=== PATIENT | female | born 1990 | race Caucasian/White ===

== ENCOUNTER 2016-06-23 23:52 | Emergency (ER) | payer BC ==
[~2016-06-23] VITALS: Ht 162.6 cm; Wt 59.4 kg
[2016-06-23 23:55] VITALS: Ht 162.6 cm; Wt 59.4 kg
[2016-06-24] MEDS ORDERED: SOD CHLORIDE 0.9% 1,000 ML IV STA (02:39)
[2016-06-24] MEDS ORDERED: ONDANSETRON 4 MG INJ IV STA (02:39)
[2016-06-24] MEDS ORDERED: FAMOTIDINE 20 MG INJ IV ONE (03:00)
[2016-06-24] MEDS ORDERED: LIDOCAINE/MYLANTA 40 ML BTL PO ONE (03:00)
[2016-06-24 03:03] LABS: ADD SCAN DIFF NO
[2016-06-24 03:07] LABS: BASOPHILS % 0.2 % (0.0-2.0); EOSINOPHILS # 0.1 10^3/ul (0.0-0.5); EOSINOPHILS % 0.5 % (0.0-7.0); HEMATOCRIT 40.3 % (37.0-47.0); HEMOGLOBIN 13.5 g/dl (12.0-16.0); LYMPHOCYTES # 1.1 10^3/ul (0.8-2.9); LYMPHOCYTES % 9.7 % (15.0-51.0); MEAN CORPUSCULAR HEMOGLOBIN 29.2 pg (29.0-33.0); MEAN CORPUSCULAR HGB CONC 33.5 g/dl (32.0-37.0); MEAN PLATELET VOLUME 9.1 fl (7.4-10.4); MONOCYTE # 0.2 10^3/ul (0.3-0.9); MONOCYTES % 1.8 % (0.0-11.0); NEUTROPHIL # 10.2 10^3/ul (1.6-7.5); NEUTROPHILS % 87.4 % (39.0-77.0); PLATELET COUNT 181 10^3/UL (140-415); RED BLOOD COUNT 4.63 10^6/ul (4.20-5.40); RED CELL DISTRIBUTION WIDTH 12.2 % (11.5-14.5); WHITE BLOOD COUNT 11.7 10^3/ul (4.8-10.8)
[2016-06-24 03:18] LABS: ALBUMIN 4.5 g/dl (3.3-4.9)
[2016-06-24 03:19] LABS: POTASSIUM 3.6 mmol/L (3.5-5.1)
[2016-06-24 03:21] LABS: ALBUMIN/GLOBULIN RATIO 1.36; BILIRUBIN,INDIRECT 0.3 mg/dl (0-1.1); BILIRUBIN,TOTAL 0.3 mg/dl (0.2-1.3); CREATININE 0.56 mg/dl (0.44-1.00); TOTAL PROTEIN 7.8 g/dl (6.1-8.1)
[2016-06-24] MEDS ORDERED: FAMO-18 PO (03:57)
[2016-06-24 04:06] VITALS: BP 118/72; PULSE 82; RESP 18; TEMP 98
--- NOTE | 2016-06-24 04:26 | ERD ---
ER Documentation Chief Complaint Date/Time DATE: 06/24/16 TIME: 04:21 Chief Complaint epigastric pain x 2 days HPI 35-year-old female with no significant past medical history presents the ED complaining of epigastric pain that started 2 days ago. States that she went to a [place] restaurant and started to drink 2 3 shots of sucking and started to have mid epigastric pain. States that the pain was worse at night. Reports that she has been taking Gatorade without relief of her symptoms. Rates her pain a 10 out of 10 and describes it as a burning sensation. States that she has had 2-3 episodes of nonbilious nonbloody vomiting. Reports that she had one episode of nonbloody, nonmucoid diarrhea. Denies any chest pain, shortness of breath, wheezing, cough, fever, chills, neck stiffness, neck pain. States that she is currently on her last menses. ROS All systems reviewed and are negative except as per history of present illness. Medications Home Meds Active Scripts Famotidine* (Pepcid*) 20 Mg Tablet, 20 MG PO BID, #30 TAB Prov:CHALO HUTCHINS PA-C 06/24/16 Allergies Allergies: Coded Allergies: No Known Allergy (Unverified , 12/26/13) PMhx/Soc History of Surgery: Yes (rhinoplasty, chin cosmetic surgery) Anesthesia Reaction: No Hx Neurological Disorder: No Hx Respiratory Disorders: No Hx Cardiac Disorders: No Hx Psychiatric Problems: No Hx Miscellaneous Medical Probl: No Hx Alcohol Use: Yes (rarely) Hx Substance Use: No Hx Tobacco Use: Yes Smoking Status: Current some day smoker Physical Exam Vitals Vital Signs Date Time Temp Pulse Resp B/P Pulse Ox O2 Delivery O2 Flow Rate FiO2 06/24/16 04:06 98.0 82 18 118/72 100 Room Air 06/23/16 23:55 98.3 68 20 124/74 100 Physical Exam Const: Xaf-ymh-[id number], well-nourished. In no acute distress. Head: Atraumatic, normocephalic Eyes: Normal Conjunctiva without injection. No purulent discharge. ENT: Normal external ear, nose. Moist oropharynx without tonsillar exudates. Non -erythematous pharynx. Uvula midline. No drooling. No trismus. Neck: No cervical midline tenderness. Full range of motion. No meningismus. No cervical lymphadenopathy. No JVD. Resp: Clear to auscultation bilaterally. No wheezing, rhonchi, rales, or crackles. No accessory muscle use. No retractions. Cardio: Regular rate and rhythm. No murmurs, rubs or gallops. Abd: Soft, epigastric tenderness, non distended. Normal bowel sounds. No palpable masses. No rebound tenderness. No guarding. Negative McBurney's point. Negative psoas sign. Negative obturator sign. Skin: No petechiae or rashes Back: No midline tenderness. No CVA tenderness. Ext: No cyanosis, or edema. Neur: Awake and alert. Normal gait. Normal coordination. Psych: Normal Mood and Affect Result Diagram: 06/24/1625006/24/16 0251 Results 24 hrs Laboratory Tests Test 06/24/16 02:51 Alanine Aminotransferase (ALT/SGPT) 23IU/L Albumin 4.5g/dl Albumin/Globulin Ratio 1.36 Alkaline Phosphatase 48IU/L Anion Gap 18 Aspartate Amino Transf (AST/SGOT) 27IU/L Basophils # 0.010^3/ul Basophils % 0.2% Blood Urea Nitrogen 11mg/dl Calcium Level 9.0mg/dl Carbon Dioxide Level 27mmol/L Chloride Level 103mmol/L Creatinine 0.56mg/dl Direct Bilirubin 0.00mg/dl Eosinophils # 0.110^3/ul Eosinophils % 0.5% Globulin 3.30g/dl Glucose Level 103mg/dl Hematocrit 40.3% Hemoglobin 13.5g/dl Indirect Bilirubin 0.3mg/dl Lipase 17U/L Lymphocytes # 1.110^3/ul Lymphocytes % 9.7% Mean Corpuscular Hemoglobin 29.2pg Mean Corpuscular Hemoglobin Concent 33.5g/dl Mean Corpuscular Volume 87.0fl Mean Platelet Volume 9.1fl Monocytes # 0.210^3/ul Monocytes % 1.8% Neutrophils # 10.210^3/ul Neutrophils % 87.4% Nucleated Red Blood Cells # 0.010^3/ul Nucleated Red Blood Cells % 0.0/100WBC Platelet Count 66275^3/UL Potassium Level 3.6mmol/L Red Blood Count 4.6310^6/ul Red Cell Distribution Width 12.2% Sodium Level 144mmol/L Total Bilirubin 0.3mg/dl Total Protein 7.8g/dl White Blood Count 11.710^3/ul Current Medications Medications (Trade) Dose Ordered Sig/Lee Ann Route PRN Reason Start Time Stop Time Status Last Admin Dose Admin Sodium Chloride (NS) 1,000 ml @ 1,000 mls/hr Q1H STAT IV 06/24/16 02:39 06/24/16 03:38 DC 06/24/16 03:00 Ondansetron HCl (Zofran Inj) 4 mg ONCE STAT IV 06/24/16 02:39 06/24/16 02:43 DC 06/24/16 03:00 Miscellaneous Medication (Gi Cocktail (2)) 40 ml ONCE ONCE PO 06/24/16 03:00 06/24/16 03:01 DC 06/24/16 03:00 Famotidine (Pepcid Iv) 20 mg ONCE ONCE IV 06/24/16 03:00 06/24/16 03:01 DC 06/24/16 03:00 Procedures/MDM This is a 25-year-old female with no significant past medical history presents the ED complaining of epigastric pain that started after drinking alcohol. Patient is afebrile and nontoxic-appearing. Patient has normal vital signs. Patient was further worked up with CBC, CMP, lipase, UA, urine , Patient's pain and symptoms have improved after treatment with GI cocktail, 20 mg IV famotidine, 1 L normal saline, 4 mg IV Zofran. CBC: No leukocytosis. No e/o of systemic infection. No e/o anemia. CMP: No e/o severe acidosis, alkalosis, renal failure, diabetic ketoacidosis, liver disease Lipase within normal limits. Urine: No leukocyte esterase, no nitrites, no hematuria. Urine : Negative Patient's epigastric pain is likely due to gastritis and exacerbated by alcohol. A differential diagnosis considered includes but is not limited to GERD, peptic ulcer disease, cholecystitis, choledocholithiasis, cholangitis, pancreatitis, appendicitis, bowel obstruction, ileus, volvulus, nephrolithiasis , pyelonephritis, hepatitis, perforated viscus, diverticulitis, abdominal hernia , acute abdomen, mesenteric ischemia or other emergent conditions. Discharge medications: Pepcid Follow up with primary care physician in 1-2 days for referral to sports coordinator. Instructed patient to return to the ED sooner for any worsening symptoms. Patient's questions were answered. Patient understood and agreed with discharge plan. Patient discharged stable. Departure Diagnosis: Primary Impression: Epigastric pain Condition: Stable Patient Instructions: Alcohol Intoxication, Gastritis Vs. Ulcer Referrals: [facility] YOU HAVE RECEIVED A MEDICAL SCREENING EXAM AND THE RESULTS INDICATE THAT YOU DO NOT HAVE A CONDITION THAT REQUIRES URGENT TREATMENT IN THE EMERGENCY DEPARTMENT. FURTHER EVALUATION AND TREATMENT OF YOUR CONDITION CAN WAIT UNTIL YOU ARE SEEN IN YOUR DOCTORS OFFICE WITHIN THE NEXT 1-2 DAYS. IT IS YOUR RESPONSIBILITY TO MAKE AN APPOINTMENT FOR FOLOW-UP CARE. IF YOU HAVE A PRIMARY DOCTOR --you should call your primary doctor and schedule an appointment IF YOU DO NOT HAVE A PRIMARY DOCTOR YOU CAN CALL OUR PHYSICIAN REFERRAL HOTLINE AT IF YOU CAN NOT AFFORD TO SEE A PHYSICIAN YOU CAN CHOSE FROM THE FOLLOWING [facility] [address] [facility]. [facility] [address] [facility] [address] [facility] [address] [facility] [address] [facility]. [facility] [address] [facility]. [facility] YOU HAVE RECEIVED A MEDICAL SCREENING EXAM AND THE RESULTS INDICATE THAT YOU DO NOT HAVE A CONDITION THAT REQUIRES URGENT TREATMENT IN THE EMERGENCY DEPARTMENT. FURTHER EVALUATION AND TREATMENT OF YOUR CONDITION CAN WAIT UNTIL YOU ARE SEEN IN YOUR DOCTORS OFFICE WITHIN THE NEXT 1-2 DAYS. IT IS YOUR RESPONSIBILITY TO MAKE AN APPOINTMENT FOR FOLOW-UP CARE. IF YOU HAVE A PRIMARY DOCTOR --you should call your primary doctor and schedule and appointment IF YOU DO NOT HAVE A PRIMARY DOCTOR YOU CAN CALL OUR PHYSICIAN REFERRAL HOTLINE AT . IF YOU CAN NOT AFFORD TO SEE A PHYSICIAN YOU CAN CHOSE FROM THE FOLLOWING [facility] INSTITUTIONS: [facility] [address] [place] [address] [facility] [address] [place] [address] [facility] [address] [address] [facility] Additional Instructions: FOLLOW UP WITH YOUR PRIMARY CARE PHYSICIAN TOMORROW.Return to this facility if you are not improving as expected. CHALO HUTCHINS PA-C Jun 24, 2016 04:26
== END 2016-06-24 04:07 | disposition home or self-care (01) ==
LOC: FTE 23:52
DX: R10.13 Epigastric pain (principal); F17.210 Nicotine dependence, cigarettes, uncomplicated; R11.10 Vomiting, unspecified
CPT/HCPCS: 36415; 80053; 83690; 85025; 96374; 96375; J2405; J7030; Z7502; Z7610

== ENCOUNTER 2018-11-12 17:28 | Emergency (ER) | payer BC ==
[~2018-11-12] VITALS: Ht 167.6 cm; Wt 54.6 kg
[~2018-11-12 17:28] MED LIST: FAMO-96 PO
[2018-11-12 17:31] VITALS: Ht 167.6 cm; Wt 54.6 kg
[2018-11-12] MEDS ORDERED: ACET325T33 PO (20:29)
[2018-11-12] MEDS ORDERED: CYCL10TA7 PO (20:29)
[2018-11-12] MEDS ORDERED: MED4DP PO (20:29)
[2018-11-12 20:36] VITALS: BP 116/75; PULSE 69; RESP 16
--- NOTE | 2018-11-13 01:33 | ERD ---
ER Documentation Chief Complaint Chief Complaint LOW BACK PAIN X2 WEEKS, NO INJURY HPI 28-year-old female presented to ED for lower back pain x2 weeks. Patient states the pain is 5 out of 10 and does not radiate. Patient denies any aggravating injuries and cannot recall any event that initiated the symptoms. Patient denies dysuria, blood in stool or urine. Patient states she does not think she is . Patient states this is never happened to her before. Patient states the pain is aggravated when she walks around and relieved when she is laying down. Patient has tried Motrin which has not helped. ROS All systems reviewed and are negative except as per history of present illness. Medications Home Meds Active Scripts Acetaminophen* (Tylenol*) 325 Mg Tablet, 1 TAB PO Q6 PRN for PAIN AND OR ELEVATED TEMP, #20 TAB Prov:JOSÉ MIGUEL DOWNS PA-C 11/12/18 Cyclobenzaprine Hcl* (Cyclobenzaprine Hcl*) 10 Mg Tablet, 10 MG PO TID, #15 TAB Prov:JOSÉ MIGUEL DOWNS PA-C 11/12/18 Methylprednisolone* (Medrol* DOSE PACK) 4 Mg/Dose-Pack Tab.ds.pk, 4 MG PO . DIRECTED for 7 Days, PACKET Prov:JOSÉ MIGUEL DOWNS PA-C 11/12/18 Famotidine* (Pepcid*) 20 Mg Tablet, 20 MG PO BID, #30 TAB Prov:CHALO HUTCHINS PA-C 06/24/16 Allergies Allergies: Coded Allergies: No Known Allergy (Unverified , 12/26/13) PMhx/Soc Medical and Surgical Hx: pt denies Medical Hx, pt denies Surgical Hx History of Surgery: Yes (rhinoplasty, chin cosmetic surgery) Anesthesia Reaction: No Hx Neurological Disorder: No Hx Respiratory Disorders: No Hx Cardiac Disorders: No Hx Psychiatric Problems: No Hx Miscellaneous Medical Probl: No Hx Alcohol Use: Yes (occasional) Hx Substance Use: No Hx Tobacco Use: No Smoking Status: Never smoker FmHx Family History: No diabetes, No coronary disease, No other Physical Exam Vitals Vital Signs Date Temp Pulse Resp B/P (MAP) Pulse Ox O2 O2 Flow FiO2 Time Delivery Rate 11/12/18 69 16 116/75 100 Room Air 20:36 (89) 11/12/18 98.8 85 17 113/65 99 17:31 (81) Physical Exam Const: No acute distress Head: Atraumatic Eyes: Normal Conjunctiva ENT: Normal External Ears, Nose and Mouth. Neck: Full range of motion. No meningismus. Resp: Clear to auscultation bilaterally Cardio: Regular rate and rhythm, no murmurs Abd: Soft, non tender, non distended. Normal bowel sounds Skin: No petechiae or rashes Back: No midline or flank tenderness Ext: No cyanosis, or edema Neur: Awake and alert Psych: Normal Mood and Affect Results 24 hrs Laboratory Tests Test 11/12/18 19:33 11/12/18 19:35 Urine Color YELLOW Urine Clarity SLIGHTLY CLOUDY Urine pH 5.0 Urine Specific [place] 1.012 Urine Ketones NEGATIVE mg/dL Urine Nitrite NEGATIVE mg/dL Urine Bilirubin NEGATIVE mg/dL Urine Urobilinogen NEGATIVE mg/dL Urine Leukocyte Esterase NEGATIVE Sharee/ul Urine Microscopic RBC 3 /HPF Urine Microscopic WBC 4 /HPF Urine Squamous Epithelial Cells FEW /HPF Urine Hemoglobin 1+ mg/dL Urine Glucose NEGATIVE mg/dL Urine Total Protein NEGATIVE mg/dl POC Beta HCG, Qualitative NEGATIVE Procedures/MDM Medical decision makin-year-old female presenting to the ED for low back pain x2 weeks. Patient's physical exam revealed back pain during straight leg raise. There is no symptoms of sciatica. The patient has 5 out of 5 myotomes and lower extremities and no pain to palpation. Patient denies any urinary symptoms. Patient states this is never happened to her before. Urine screening was negative and the patient does not have a UTI. Patient states she can pass urine and stool without difficulty. Patient states there is no been no blood in her stool or urine. Patient has no CVA tenderness. Patient has no numbness tingling or weakness in any of the extremities. At this time I have low suspicion for , ectopic , ovarian torsion cauda equine syndrome, spinal fractures, epidural abscess, spinal metastases, osteomyelitis, aortic dissection, ruptured or leaking AA, DJD, sciatica, lumbar strain, muscle spasm, pyelonephritis or nephrolithiasis. Advised the patient she needs to follow-up with her primary care provider in 1 to 2 days regarding this visit. If symptoms worsen return to ER immediately. The patient is agreement treatment plan all questions were answered upon discharge Prescription for home: Cyclobenzaprine Medrol Dosepak Acetaminophen I have discussed with the patient proper use and common side effects to expert with the medication . I advised the patient/family to speak with the pharmacist dispensing the medication to be advised of any potential drug interactions with other medication or supplements they may be taking. Discharge: At this time, patient is stable for discharge and outpatient management. I have instructed the patient to follow-up with his\her primary care physician in 1 to 2 days. I have discussed with the patient the possibility of needing to see a specialist for further work-up and imaging studies if symptoms persist. I have instructed the patient to promptly return to the ER for any new or worsening symptoms including increased pain, fever, nausea, vomiting, weakness or LOC. The patient and\or family expressed understanding of and agreement with this plan. All questions were answered. Home care instructions were provided. Disclaimer: Inadvertent spelling and grammatical errors are likely due to EHR\dictation software use and do not reflect on the overall quality of patient care. Also, please note that the electronic time recorded on the note does not necessarily reflect the actual time of the patient encounter. Departure Diagnosis: Primary Impression: Low back strain Encounter type: initial encounter Qualified Codes: S39.012A - Strain of muscle, fascia and tendon of lower back, initial encounter Condition: Stable Patient Instructions: Back Exercises: Lower Back Stretch Referrals: [facility] YOU HAVE RECEIVED A MEDICAL SCREENING EXAM AND THE RESULTS INDICATE THAT YOU DO NOT HAVE A CONDITION THAT REQUIRES URGENT TREATMENT IN THE EMERGENCY DEPARTMENT. FURTHER EVALUATION AND TREATMENT OF YOUR CONDITION CAN WAIT UNTIL YOU ARE SEEN IN YOUR DOCTORS OFFICE WITHIN THE NEXT 1-2 DAYS. IT IS YOUR RESPONSIBILITY TO MAKE AN APPOINTMENT FOR FOLOW-UP CARE. IF YOU HAVE A PRIMARY DOCTOR --you should call your primary doctor and schedule an appointment IF YOU DO NOT HAVE A PRIMARY DOCTOR YOU CAN CALL OUR PHYSICIAN REFERRAL HOTLINE AT IF YOU CAN NOT AFFORD TO SEE A PHYSICIAN YOU CAN CHOSE FROM THE FOLLOWING [facility] [address] [facility] [address] [facility] [address] [facility] [address] [facility] [address] [facility]. [facility] [address] [facility]. [facility] YOU HAVE RECEIVED A MEDICAL SCREENING EXAM AND THE RESULTS INDICATE THAT YOU DO NOT HAVE A CONDITION THAT REQUIRES URGENT TREATMENT IN THE EMERGENCY DEPARTMENT. FURTHER EVALUATION AND TREATMENT OF YOUR CONDITION CAN WAIT UNTIL YOU ARE SEEN IN YOUR DOCTORS OFFICE WITHIN THE NEXT 1-2 DAYS. IT IS YOUR RESPONSIBILITY TO MAKE AN APPOINTMENT FOR FOLOW-UP CARE. IF YOU HAVE A PRIMARY DOCTOR --you should call your primary doctor and schedule and appointment IF YOU DO NOT HAVE A PRIMARY DOCTOR YOU CAN CALL OUR PHYSICIAN REFERRAL HOTLINE AT . IF YOU CAN NOT AFFORD TO SEE A PHYSICIAN YOU CAN CHOSE FROM THE FOLLOWING [facility] INSTITUTIONS: [facility] [address] [place] [address] [facility] [address] [place] [address] [facility] [address] [place] [address] Additional Instructions: Return to this facility in 2 DAYS for a follow-up exam.Return sooner if your condition worsens. JOSÉ MIGUEL DOWNS PA-C Nov 13, 2018 01:33
== END 2018-11-12 20:37 | disposition home or self-care (01) ==
LOC: FTE 17:28
DX: S39.012A Strain of muscle, fascia and tendon of lower back, initial encounter (principal); X58.XXXA Exposure to other specified factors, initial encounter; Y92.9 Unspecified place or not applicable
CPT/HCPCS: 81001; 81025; Z7502; 99283